=== PATIENT | female | born 1950 | race Caucasian/White ===

== ENCOUNTER → 2023-11-07 | Outpatient (CLI) | payer MEDICARE, SELFPAY ==
[2023-11-13 15:08] LABS: Immunoglobulin A 353 mg/dL (64-422); Immunoglobulin E 5 IU/mL (6-495); Immunoglobulin G 1098 mg/dL (586-1602); Immunoglobulin M 93 mg/dL (26-217)
== END | disposition home or self-care (01) ==
PROVIDERS: Referring Provider Specialist; Visit Provider Specialist
DX: D84.9 Immunodeficiency, unspecified (principal)
CPT/HCPCS: 36415; 82784; 82785